=== PATIENT | male | born 1965 | race Caucasian/White ===

== ENCOUNTER 2025-09-19 14:04 | Outpatient (CLI) | payer OTHER | END 2025-09-19 14:05 | disposition home or self-care (01) | LOC: SCSMRI 14:04 | PROVIDERS: ATTEND Family Medicine | DX: M23.92 Unspecified internal derangement of left knee (principal) ==

== ENCOUNTER 2025-10-20 14:11 | Outpatient (CLI) | payer OTHER | END 2025-10-20 14:12 | disposition home or self-care (01) | LOC: SCSMRI 14:11 | DX: S49.91XA Unspecified injury of right shoulder and upper arm, initial encounter (principal); S46.211A Strain of muscle, fascia and tendon of other parts of biceps, right arm, initial encounter; L90.5 Scar conditions and fibrosis of skin ==